=== PATIENT | female | born 1935 | race Caucasian/White ===

== ENCOUNTER 2017-06-13 21:48 | Emergency (ER) | payer MEDICARE ==
[~2017-06-13] VITALS: Ht 170.2 cm; Wt 57.0 kg
[~2017-06-13 21:48] MED LIST: AMIT-106 PO; ASPI-1053 PO; ATOR20TA PO; BUSP5TAB26 PO; CALC1TAB PO; CITA20TA11 PO; CLON0.5T4 PO; FERR324T4 PO; HYDR-3973 PO; LUTE1CAP5 PO; MIRT15TA8 PO; OMEP40CA37 PO; SYSTANE EYE OT; TRAZ-143 PO; VITC500T PO; [UNRECOGNIZED DRUG - CODE] TP; [UNRECOGNIZED DRUG - OTHER] TOP
[2017-06-13] MEDS ORDERED: ALPRAZolam 0.5mg tablet PO ONE (22:10)
[2017-06-13 22:53] VITALS: BP 134/92
== END 2017-06-13 22:54 | disposition home or self-care (01) ==
LOC: ER 21:48
DX: F41.9 Anxiety disorder, unspecified (principal); E78.00 Pure hypercholesterolemia, unspecified; K21.9 Gastro-esophageal reflux disease without esophagitis; F32.9 Major depressive disorder, single episode, unspecified; G89.29 Other chronic pain; I25.2 Old myocardial infarction; I12.9 Hypertensive chronic kidney disease with stage 1 through stage 4 chronic kidney disease, or unspecified chronic kidney disease; N18.9 Chronic kidney disease, unspecified; Z88.0 Allergy status to penicillin
CPT/HCPCS: 93005; 99283; 99284

== ENCOUNTER 2017-06-15 23:05 | Emergency (ER) | payer MEDICARE ==
[~2017-06-15] VITALS: Ht 157.5 cm; Wt 56.6 kg
[2017-06-15 23:31] VITALS: BP 159/93
== END 2017-06-15 23:43 | disposition home or self-care (01) ==
LOC: ER 23:06
DX: R10.9 Unspecified abdominal pain (principal); E78.00 Pure hypercholesterolemia, unspecified; I10 Essential (primary) hypertension; K21.9 Gastro-esophageal reflux disease without esophagitis; Z88.0 Allergy status to penicillin; Z79.82 Long term (current) use of aspirin
CPT/HCPCS: 99283

== ENCOUNTER 2017-10-27 14:25 | Emergency (ER) | payer MEDICARE ==
[~2017-10-27] VITALS: Ht 578.2 cm; Wt 57.0 kg
[~2017-10-27 14:25] MED LIST changes: +CITA-278 PO; -CITA20TA11 PO; +CLON0.5T12 PO; -CLON0.5T4 PO
[2017-10-27 14:36] VITALS: BP 134/79
[2017-10-27 15:30] LABS: BASOPHILS % (AUTO) 0.5 % (0-1); EOSINOPHILS # (AUTO) 0.1 X10'3 (0-0.9); EOSINOPHILS % (AUTO) 1.5 % (0-6); HEMATOCRIT 30.1 % (35.0-45.0); HEMOGLOBIN 10.2 g/dl (12.0-16.0); LYMPHOCYTES # (AUTO) 0.8 X10'3 (1.1-4.8); LYMPHOCYTES % (AUTO) 7.9 % (21-51); MEAN CORPUSCULAR HEMOGLOBIN 31.1 PG (27.0-31.0); MEAN CORPUSCULAR HGB CONC 33.7 % (33.0-36.5); MEAN CORPUSCULAR VOLUME 92.3 FL (78-98); MONOCYTES # (AUTO) 0.5 X10'3 (0-0.9); MONOCYTES % (AUTO) 5.4 % (2-12); NEUTROPHILS # (AUTO) 8.2 X10'3 (1.8-7.7); NEUTROPHILS % (AUTO) 84.7 % (42-75); PLATELET COUNT 349 X10'3 (140-440); RED BLOOD COUNT 3.26 X10'6 (4.20-5.60); RED CELL DISTRIBUTION WIDTH 12.5 % (11.5-14.5); WHITE BLOOD COUNT 9.6 X10'3 (4.5-11.0)
[2017-10-27 15:44] LABS: ALANINE AMINOTRANSFERASE 29 U/L (12-78); ALBUMIN 3.4 G/DL (3.4-5.0); ALBUMIN/GLOBULIN RATIO 1.1 (1.1-1.5); ALKALINE PHOSPHATASE 85 IU/L (46-116); ANION GAP 8 (8-16); ASPARTATE AMINO TRANSFERASE 22 U/L (10-37); BILIRUBIN,TOTAL 0.3 MG/DL (0.1-1.0); BLOOD UREA NITROGEN 11 MG/DL (7-18); BUN/CREATININE RATIO 6.1 (6.6-38.0); CALCIUM 8.7 MG/DL (8.5-10.1); CHLORIDE 99 MMOL/L (99-107); CREATININE 1.79 MG/DL (0.40-0.90); GLUCOSE 121 MG/DL (70-104); POTASSIUM 3.6 MMOL/L (3.5-5.1); SODIUM 129 MMOL/L (135-145); TOTAL CARBON DIOXIDE 21.6 MMOL/L (24-32); TOTAL PROTEIN 6.6 G/DL (6.4-8.2); eGFR 27 ML/MIN
[2017-10-27 15:53] LABS: ETHANOL < 0.010 GM/DL (0.0-0.010)
[2017-10-27 16:12] LABS: CLARITY,URINE SLIGHTLY CLOUDY (Clear); COLOR,URINE STRAW (Yellow); GLUCOSE, URINE NEGATIVE (Neg); KETONES,URINE NEGATIVE (Neg); LEUKOCYTE ESTERASE ,URINE SMALL (Neg); NITRITES, URINE NEGATIVE (Neg); OCCULT BLOOD,URINE NEGATIVE (Neg); PROTEIN,URINE NEGATIVE (Neg); UROBILINOGEN,URINE 0.2 E.U/dL (0.2-1.0)
[2017-10-27 16:13] LABS: UA COLLECTION TYPE CLN CATCH MIDSTREAM
[2017-10-27 16:15] LABS: URINE AMPHETAMINE SCREEN NEGATIVE (Neg); URINE BARBITUATE SCREEN NEGATIVE (Neg); URINE BENZODIAZEPINES SCREEN NEGATIVE (Neg); URINE CANNABINOID SCREEN NEGATIVE (Neg); URINE COCAINE SCREEN NEGATIVE (Neg); URINE METHADONE SCREEN NEGATIVE (Neg); URINE OPIATE SCREEN POSITIVE (Neg); URINE PHENCYCLIDINE SCREEN NEGATIVE (Neg)
[2017-10-27 16:20] LABS: SQUAMOUS EPITHELIAL CELL,UR MANY /LPF (FEW)
[2017-10-27 16:21] LABS: BACTERIA,URINE FEW /HPF (Neg); MUCUS STRANDS NONE SEEN /LPF (Neg); RBC,URINE NONE SEEN /HPF (0-2); TRANSITIONAL EPI CELLS,URINE FEW /HPF; WBC,URINE 20-30 /HPF (0-4)
== END 2017-10-27 18:10 ==
LOC: ER 14:26
DX: F32.9 Major depressive disorder, single episode, unspecified (principal); N18.3 Chronic kidney disease, stage 3 (moderate); E87.1 Hypo-osmolality and hyponatremia; E78.00 Pure hypercholesterolemia, unspecified; I12.9 Hypertensive chronic kidney disease with stage 1 through stage 4 chronic kidney disease, or unspecified chronic kidney disease; K21.9 Gastro-esophageal reflux disease without esophagitis; F41.9 Anxiety disorder, unspecified; Z88.0 Allergy status to penicillin; Z91.013 Allergy to seafood; Z79.82 Long term (current) use of aspirin; Z79.899 Other long term (current) drug therapy
CPT/HCPCS: 36415; 80053; 80305; 80320; 81001; 84443; 85025; 99285

== ENCOUNTER 2017-10-27 18:10 | Inpatient (IN) | payer MEDICARE ==
[~2017-10-27] VITALS: Ht 167.6 cm; Wt 56.0 kg
[2017-10-27 20:00] VITALS: BP 131/76
[2017-10-27] MEDS ORDERED: traZODone 50mg tablet PO PRN (20:25)
[2017-10-27] MEDS ORDERED: SYSTANE EYE OT PRN (20:50)
[2017-10-27] MEDS ORDERED: [UNRECOGNIZED DRUG - OTHER] TOP PRN (20:50)
[2017-10-27] MEDS ORDERED: amitriptyline 25mg tablet PO PRN (20:50)
[2017-10-27] MEDS ORDERED: traZODone 50mg tablet PO SCH ×2 (21:00)
[2017-10-27] MEDS ORDERED: BUSPIRONE HCL 10 MG PO SCH (21:00)
[2017-10-27] MEDS ORDERED: mirtazapine 15mg tablet PO SCH ×2 (21:00)
[2017-10-27] MEDS ORDERED: amitriptyline 10mg tablet PO SCH (21:00)
[2017-10-27] MEDS ORDERED: amitriptyline 25mg tablet PO SCH (21:00)
[2017-10-27] MEDS ORDERED: clonazePAM 0.5mg tablet PO SCH (21:45)
[2017-10-27] MEDS ORDERED: HYDROcodone/acetaminophen 10/325mg tab PO ONE (21:45)
[2017-10-27] MEDS ORDERED: traZODone 50mg tablet PO ONE (22:05)
[2017-10-27] MEDS: aspirin 81mg tab.chew PO SCH (22:15)
[2017-10-27] MEDS: metroNIDAZOLE 500mg tablet PO SCH (22:16)
[2017-10-28] MEDS ORDERED: MENTHOL TP SCH (02:00)
[2017-10-28] MEDS ORDERED: METHYL SALICYLATE TP SCH (02:00)
[2017-10-28] MEDS: metroNIDAZOLE 500mg tablet PO SCH ×3 (05:09→21:19)
[2017-10-28] MEDS: pantoprazole 40mg Tablet.DR PO SCH (07:22)
[2017-10-28 08:00] VITALS: BP 145/78
[2017-10-28] MEDS ORDERED: DESVENLAFAXINE 50 MG PO SCH (08:00)
[2017-10-28] MEDS ORDERED: HYDROcodone/acetaminophen 10/325mg tab PO SCH (08:00)
[2017-10-28] MEDS ORDERED: ZEAXANTHIN PO SCH (08:00)
[2017-10-28] MEDS ORDERED: LUTEIN PO SCH (08:00)
[2017-10-28] MEDS: atorvastatin 20mg tablet PO SCH (08:04)
[2017-10-28] MEDS: busPIRone 5mg tablet PO SCH ×2 (08:04→19:26)
[2017-10-28] MEDS: clonazePAM 0.5mg tablet PO SCH ×2 (08:04→19:26)
[2017-10-28] MEDS: calcium carbonate/vitamin D3 tablet PO SCH (08:04)
[2017-10-28] MEDS: HYDROcodone/acetaminophen 10/325mg tab PO SCH ×3 (08:05→21:20)
[2017-10-28] MEDS: ascorbic acid 500mg tablet PO SCH (08:05)
[2017-10-28 09:46] LABS: BASOPHILS % (AUTO) 0.6 % (0-1); EOSINOPHILS # (AUTO) 0.6 X10'3 (0-0.9); HEMATOCRIT 29.7 % (35.0-45.0); HEMOGLOBIN 9.9 g/dl (12.0-16.0); LYMPHOCYTES % (AUTO) 13.4 % (21-51); MEAN CORPUSCULAR HEMOGLOBIN 30.9 PG (27.0-31.0); MEAN CORPUSCULAR HGB CONC 33.3 % (33.0-36.5); MEAN CORPUSCULAR VOLUME 92.7 FL (78-98); MEAN PLATELET VOLUME 6.4 FL (7.4-10.4); MONOCYTES # (AUTO) 0.6 X10'3 (0-0.9); MONOCYTES % (AUTO) 8.3 % (2-12); NEUTROPHILS # (AUTO) 5.4 X10'3 (1.8-7.7); NEUTROPHILS % (AUTO) 69.7 % (42-75); PLATELET COUNT 304 X10'3 (140-440); RED BLOOD COUNT 3.21 X10'6 (4.20-5.60); RED CELL DISTRIBUTION WIDTH 13.8 % (11.5-14.5); WHITE BLOOD COUNT 7.8 X10'3 (4.5-11.0)
[2017-10-28 10:02] LABS: ALANINE AMINOTRANSFERASE 23 U/L (12-78); ALBUMIN 3.2 G/DL (3.4-5.0); ALBUMIN/GLOBULIN RATIO 1.1 (1.1-1.5); ALKALINE PHOSPHATASE 83 IU/L (46-116); ANION GAP 11 (8-16); ASPARTATE AMINO TRANSFERASE 20 U/L (10-37); BILIRUBIN,TOTAL 0.2 MG/DL (0.1-1.0); BLOOD UREA NITROGEN 12 MG/DL (7-18); BUN/CREATININE RATIO 6.3 (6.6-38.0); CALCIUM 8.6 MG/DL (8.5-10.1); CHLORIDE 105 MMOL/L (99-107); CHOL/HDL RATIO 2.1 (0.00-4.99); CHOLESTEROL 87 MG/DL (0-200); CREATININE 1.91 MG/DL (0.40-0.90); GLUCOSE 114 MG/DL (70-104); HDL CHOLESTEROL 41 MG/DL (35-60); LDL CHOLESTEROL 32 MG/DL (50-100); POTASSIUM 3.2 MMOL/L (3.5-5.1); SODIUM 137 MMOL/L (135-145); TOTAL CARBON DIOXIDE 20.9 MMOL/L (24-32); TOTAL PROTEIN 6.2 G/DL (6.4-8.2); TRIGLYCERIDES 76 MG/DL (20-135); eGFR 25 ML/MIN
[2017-10-28] MEDS: ondansetron 4mg rapidly disintigrating tab PO PRN ×2 (12:47→21:18)
[2017-10-28] MEDS: lactobacillus rhamnosus 10,000 MMU CELLS/CAPSULE PO SCH (19:25)
[2017-10-28 20:00] VITALS: BP 151/85
[2017-10-28] MEDS ORDERED: traZODone 50mg tablet PO SCH (21:00)
[2017-10-28] MEDS: traZODone 50mg tablet PO SCH (21:19)
[2017-10-28] MEDS: mirtazapine 15mg tablet PO SCH (21:19)
[2017-10-28] MEDS: aspirin 81mg tab.chew PO SCH (21:19)
[2017-10-28] MEDS ORDERED: HYDROcodone/acetaminophen 10/325mg tab PO ONE (22:55)
[2017-10-29] MEDS ORDERED: LORazepam 0.5 MG tablet PO PRN (04:25)
[2017-10-29] MEDS: pantoprazole 40mg Tablet.DR PO SCH (07:45)
[2017-10-29 08:00] VITALS: BP 147/81
[2017-10-29] MEDS: lactobacillus rhamnosus 10,000 MMU CELLS/CAPSULE PO SCH ×2 (08:21→21:02)
[2017-10-29] MEDS: venlafaxine XR 75mg capsule (Q24H) PO SCH (08:21)
[2017-10-29] MEDS: busPIRone 5mg tablet PO SCH ×2 (08:21→21:02)
[2017-10-29] MEDS: clonazePAM 0.5mg tablet PO SCH ×2 (08:22→21:03)
[2017-10-29] MEDS: metroNIDAZOLE 500mg tablet PO SCH ×3 (08:22→21:03)
[2017-10-29] MEDS: atorvastatin 20mg tablet PO SCH (08:22)
[2017-10-29] MEDS: calcium carbonate/vitamin D3 tablet PO SCH (08:23)
[2017-10-29] MEDS: HYDROcodone/acetaminophen 10/325mg tab PO SCH ×3 (08:23→21:05)
[2017-10-29] MEDS: ascorbic acid 500mg tablet PO SCH (08:23)
[2017-10-29] MEDS: ondansetron 4mg rapidly disintigrating tab PO PRN (09:35)
[2017-10-29] MEDS: LORazepam 0.5 MG tablet PO PRN ×2 (09:35→19:35)
[2017-10-29 20:57] VITALS: BP 128/80
[2017-10-29] MEDS: traZODone 50mg tablet PO SCH (21:03)
[2017-10-29] MEDS: aspirin 81mg tab.chew PO SCH (21:03)
[2017-10-29] MEDS: mirtazapine 15mg tablet PO SCH (21:04)
[2017-10-29] MEDS: SALONPAS TP SCH (21:07)
[2017-10-30] MEDS: pantoprazole 40mg Tablet.DR PO SCH (07:27)
[2017-10-30 08:00] VITALS: BP 134/79
[2017-10-30] MEDS: clonazePAM 0.5mg tablet PO SCH ×2 (08:20→20:18)
[2017-10-30] MEDS: venlafaxine XR 75mg capsule (Q24H) PO SCH (08:20)
[2017-10-30] MEDS: atorvastatin 20mg tablet PO SCH (08:20)
[2017-10-30] MEDS: busPIRone 5mg tablet PO SCH ×2 (08:20→20:17)
[2017-10-30] MEDS: calcium carbonate/vitamin D3 tablet PO SCH (08:21)
[2017-10-30] MEDS: lactobacillus rhamnosus 10,000 MMU CELLS/CAPSULE PO SCH ×2 (08:21→20:17)
[2017-10-30] MEDS: SALONPAS TP SCH ×3 (08:21→20:54)
[2017-10-30] MEDS: ascorbic acid 500mg tablet PO SCH (08:21)
[2017-10-30] MEDS: HYDROcodone/acetaminophen 10/325mg tab PO SCH ×3 (08:21→20:53)
[2017-10-30] MEDS: LORazepam 0.5 MG tablet PO PRN ×2 (12:40→20:52)
[2017-10-30 19:00] VITALS: BP 91/69
[2017-10-30] MEDS: mirtazapine 15mg tablet PO SCH (20:18)
[2017-10-30] MEDS: aspirin 81mg tab.chew PO SCH (20:18)
[2017-10-30] MEDS: traZODone 50mg tablet PO SCH (20:18)
[2017-10-30 21:00] VITALS: BP 120/70
[2017-10-30] MEDS ORDERED: mag hydrox/Alum hydrox/simeth 30ml oral suspension PO PRN (21:50)
[2017-10-31] MEDS: LORazepam 0.5 MG tablet PO PRN ×2 (02:53→13:38)
[2017-10-31] MEDS: ondansetron 4mg rapidly disintigrating tab PO PRN (02:56)
[2017-10-31] MEDS ORDERED: HYDROcodone/acetaminophen 10/325mg tab PO ONE (04:20)
[2017-10-31] MEDS: pantoprazole 40mg Tablet.DR PO SCH (06:58)
[2017-10-31] MEDS: busPIRone 5mg tablet PO SCH ×2 (08:31→20:30)
[2017-10-31] MEDS: venlafaxine XR 75mg capsule (Q24H) PO SCH (08:31)
[2017-10-31] MEDS: lactobacillus rhamnosus 10,000 MMU CELLS/CAPSULE PO SCH ×2 (08:31→20:30)
[2017-10-31] MEDS: clonazePAM 0.5mg tablet PO SCH (08:32)
[2017-10-31] MEDS: ascorbic acid 500mg tablet PO SCH (08:32)
[2017-10-31] MEDS: atorvastatin 20mg tablet PO SCH (08:32)
[2017-10-31] MEDS: calcium carbonate/vitamin D3 tablet PO SCH (08:32)
[2017-10-31] MEDS: HYDROcodone/acetaminophen 10/325mg tab PO SCH ×3 (08:33→20:32)
[2017-10-31] MEDS: SALONPAS TP SCH ×3 (08:35→20:32)
[2017-10-31 09:41] VITALS: BP 126/78
[2017-10-31] MEDS ORDERED: MIRT30TA8 PO (15:58)
[2017-10-31] MEDS ORDERED: TRAZ-143 PO (15:58)
[2017-10-31] MEDS ORDERED: ATI0.5T PO (15:58)
[2017-10-31] MEDS ORDERED: PANT40TA4 PO (15:58)
[2017-10-31] MEDS ORDERED: VENL75CA61 PO (15:58)
[2017-10-31 19:00] VITALS: BP 125/98
[2017-10-31 19:30] VITALS: BP 120/60
[2017-10-31] MEDS: aspirin 81mg tab.chew PO SCH (20:30)
[2017-10-31] MEDS: traZODone 50mg tablet PO SCH (20:31)
[2017-10-31] MEDS: LORazepam 0.5 MG tablet PO SCH (20:31)
[2017-10-31] MEDS: mirtazapine 15mg tablet PO SCH (20:31)
[2017-10-31] MEDS ORDERED: traZODone 50mg tablet PO ONE (23:35)
[2017-11-01] MEDS: SALONPAS TP SCH ×2 (07:15→12:37)
[2017-11-01] MEDS: pantoprazole 40mg Tablet.DR PO SCH (07:16)
[2017-11-01 08:00] VITALS: BP 147/83
[2017-11-01] MEDS: atorvastatin 20mg tablet PO SCH (08:03)
[2017-11-01] MEDS: venlafaxine XR 75mg capsule (Q24H) PO SCH (08:03)
[2017-11-01] MEDS: lactobacillus rhamnosus 10,000 MMU CELLS/CAPSULE PO SCH (08:03)
[2017-11-01] MEDS: ascorbic acid 500mg tablet PO SCH (08:03)
[2017-11-01] MEDS: calcium carbonate/vitamin D3 tablet PO SCH (08:03)
[2017-11-01] MEDS: LORazepam 0.5 MG tablet PO SCH ×2 (08:03→12:38)
[2017-11-01] MEDS: HYDROcodone/acetaminophen 10/325mg tab PO SCH ×2 (08:05→13:09)
[2017-11-01] MEDS: busPIRone 5mg tablet PO SCH (08:06)
== END 2017-11-01 13:50 | disposition home or self-care (01) | DRG 885 ==
LOC: ADULT MH 18:10
PROVIDERS: ADMIT Psychiatry & Neurology Psychiatry; ATTEND Family Medicine
DX: F32.2 Major depressive disorder, single episode, severe without psychotic features (principal); E87.1 Hypo-osmolality and hyponatremia; N18.4 Chronic kidney disease, stage 4 (severe); E78.5 Hyperlipidemia, unspecified; K21.9 Gastro-esophageal reflux disease without esophagitis; Z96.653 Presence of artificial knee joint, bilateral; I12.9 Hypertensive chronic kidney disease with stage 1 through stage 4 chronic kidney disease, or unspecified chronic kidney disease; D50.9 Iron deficiency anemia, unspecified; E78.00 Pure hypercholesterolemia, unspecified; F41.1 Generalized anxiety disorder; F41.0 Panic disorder [episodic paroxysmal anxiety]; Z88.0 Allergy status to penicillin; Z91.013 Allergy to seafood; Z79.899 Other long term (current) drug therapy; Z82.49 Family history of ischemic heart disease and other diseases of the circulatory system; Z82.0 Family history of epilepsy and other diseases of the nervous system
CPT/HCPCS: 36415; 80053; 80061; 83036; 85025; 87070; J3490

== ENCOUNTER 2017-11-04 14:47 | Emergency (ER) | payer MEDICARE ==
[~2017-11-04] VITALS: Ht 170.2 cm; Wt 54.5 kg
[~2017-11-04 14:47] MED LIST changes: +ATI0.5T PO; -CITA-278 PO; -CLON0.5T12 PO; -FERR324T4 PO; -MIRT15TA8 PO; +MIRT30TA8 PO; -OMEP40CA37 PO; +PANT40TA4 PO; +VENL75CA61 PO
[2017-11-04] MEDS ORDERED: hydrOXYzine 25 MG tablet PO ONE (15:05)
[2017-11-04 15:30] LABS: BASOPHILS # (AUTO) 0.1 X10'3 (0-0.2); BASOPHILS % (AUTO) 1.1 % (0-1); EOSINOPHILS # (AUTO) 0.3 X10'3 (0-0.9); EOSINOPHILS % (AUTO) 4.2 % (0-6); HEMOGLOBIN 9.1 g/dl (12.0-16.0); LYMPHOCYTES # (AUTO) 0.7 X10'3 (1.1-4.8); LYMPHOCYTES % (AUTO) 10.8 % (21-51); MEAN CORPUSCULAR HEMOGLOBIN 30.8 PG (27.0-31.0); MEAN CORPUSCULAR HGB CONC 33.7 % (33.0-36.5); MEAN CORPUSCULAR VOLUME 91.3 FL (78-98); MONOCYTES # (AUTO) 0.5 X10'3 (0-0.9); MONOCYTES % (AUTO) 8.1 % (2-12); NEUTROPHILS # (AUTO) 4.8 X10'3 (1.8-7.7); NEUTROPHILS % (AUTO) 75.8 % (42-75); PLATELET COUNT 316 X10'3 (140-440); RED BLOOD COUNT 2.95 X10'6 (4.20-5.60); RED CELL DISTRIBUTION WIDTH 13.5 % (11.5-14.5); WHITE BLOOD COUNT 6.4 X10'3 (4.5-11.0)
[2017-11-04 15:45] LABS: ALANINE AMINOTRANSFERASE 21 U/L (12-78); ALBUMIN 3.3 G/DL (3.4-5.0); ALBUMIN/GLOBULIN RATIO 1.1 (1.1-1.5); ALKALINE PHOSPHATASE 74 IU/L (46-116); ANION GAP 12 (8-16); ASPARTATE AMINO TRANSFERASE 18 U/L (10-37); BILIRUBIN,TOTAL 0.3 MG/DL (0.1-1.0); BLOOD UREA NITROGEN 15 MG/DL (7-18); BUN/CREATININE RATIO 8.5 (6.6-38.0); CALCIUM 9.1 MG/DL (8.5-10.1); CHLORIDE 96 MMOL/L (99-107); CREATININE 1.77 MG/DL (0.40-0.90); GLUCOSE 99 MG/DL (70-104); POTASSIUM 3.8 MMOL/L (3.5-5.1); SODIUM 128 MMOL/L (135-145); TOTAL CARBON DIOXIDE 19.8 MMOL/L (24-32); TOTAL PROTEIN 6.2 G/DL (6.4-8.2); eGFR 28 ML/MIN
[2017-11-04 15:53] LABS: CLARITY,URINE CLEAR (Clear); COLOR,URINE STRAW (Yellow); GLUCOSE, URINE NEGATIVE (Neg); KETONES,URINE NEGATIVE (Neg); LEUKOCYTE ESTERASE ,URINE NEGATIVE (Neg); NITRITES, URINE NEGATIVE (Neg); OCCULT BLOOD,URINE NEGATIVE (Neg); PH,URINE 6.5 (4.8-8.0); PROTEIN,URINE NEGATIVE (Neg); UA COLLECTION TYPE VOIDED; UROBILINOGEN,URINE 0.2 E.U/dL (0.2-1.0)
[2017-11-04 16:18] VITALS: BP 154/85
== END 2017-11-04 16:20 | disposition home or self-care (01) ==
LOC: ER 14:47
DX: F41.9 Anxiety disorder, unspecified (principal); N18.1 Chronic kidney disease, stage 1; E78.00 Pure hypercholesterolemia, unspecified; K21.9 Gastro-esophageal reflux disease without esophagitis; F32.9 Major depressive disorder, single episode, unspecified; I12.9 Hypertensive chronic kidney disease with stage 1 through stage 4 chronic kidney disease, or unspecified chronic kidney disease; Z98.890 Other specified postprocedural states; Z88.0 Allergy status to penicillin; Z91.013 Allergy to seafood; Z79.82 Long term (current) use of aspirin; Z79.899 Other long term (current) drug therapy
CPT/HCPCS: 36415; 80053; 81003; 85025; 99284; Q0177

== ENCOUNTER 2017-12-26 13:48 | Emergency (ER) | payer MEDICARE ==
[~2017-12-26] VITALS: Ht 167.6 cm; Wt 53.0 kg
[~2017-12-26 13:48] MED LIST changes: -TRAZ-143 PO; +TRAZ-218 PO
[2017-12-26] MEDS ORDERED: MULTIVITAMIN (14:53)
[2017-12-26] MEDS ORDERED: MAGN500T9 PO (14:53)
[2017-12-26] MEDS ORDERED: CELE-193 PO (14:53)
[2017-12-26] MEDS ORDERED: METO100T14 PO (14:53)
[2017-12-26] MEDS ORDERED: TEMA15CA5 PO (14:53)
[2017-12-26] MEDS ORDERED: CITA-278 PO (14:53)
[2017-12-26] MEDS ORDERED: PRAV40TA3 PO (14:53)
[2017-12-26] MEDS ORDERED: DIGO125T PO (14:53)
[2017-12-26] MEDS ORDERED: ONDA8TAB9 PO (14:53)
[2017-12-26 15:02] LABS: BASOPHILS % (AUTO) 0.5 % (0-1); EOSINOPHILS # (AUTO) 0.7 X10'3 (0-0.9); EOSINOPHILS % (AUTO) 8.9 % (0-6); HEMATOCRIT 27.6 % (35.0-45.0); HEMOGLOBIN 9.4 g/dl (12.0-16.0); LYMPHOCYTES # (AUTO) 0.9 X10'3 (1.1-4.8); LYMPHOCYTES % (AUTO) 11.3 % (21-51); MEAN CORPUSCULAR HEMOGLOBIN 31.1 PG (27.0-31.0); MEAN CORPUSCULAR HGB CONC 34.2 % (33.0-36.5); MEAN PLATELET VOLUME 7.5 FL (7.4-10.4); MONOCYTES # (AUTO) 0.7 X10'3 (0-0.9); NEUTROPHILS # (AUTO) 5.3 X10'3 (1.8-7.7); NEUTROPHILS % (AUTO) 70.3 % (42-75); PLATELET COUNT 240 X10'3 (140-440); RED BLOOD COUNT 3.03 X10'6 (4.20-5.60); RED CELL DISTRIBUTION WIDTH 13.3 % (11.5-14.5); WHITE BLOOD COUNT 7.6 X10'3 (4.5-11.0)
[2017-12-26] MEDS ORDERED: HYDROcodone/acetaminophen 5mg/325mg tablet PO ONE (15:10)
[2017-12-26 15:20] LABS: ALANINE AMINOTRANSFERASE 18 U/L (12-78); ALBUMIN 3.3 G/DL (3.4-5.0); ALBUMIN/GLOBULIN RATIO 1.1 (1.1-1.5); ALKALINE PHOSPHATASE 106 IU/L (46-116); ANION GAP 9 (8-16); ASPARTATE AMINO TRANSFERASE 10 U/L (10-37); BILIRUBIN,TOTAL 0.2 MG/DL (0.1-1.0); BLOOD UREA NITROGEN 35 MG/DL (7-18); BUN/CREATININE RATIO 16.2 (6.6-38.0); CALCIUM 8.9 MG/DL (8.5-10.1); CHLORIDE 101 MMOL/L (99-107); CREATININE 2.16 MG/DL (0.40-0.90); GLUCOSE 127 MG/DL (70-104); POTASSIUM 5.4 MMOL/L (3.5-5.1); SODIUM 135 MMOL/L (135-145); TOTAL CARBON DIOXIDE 25.1 MMOL/L (24-32); TOTAL PROTEIN 6.2 G/DL (6.4-8.2); eGFR 22 ML/MIN
[2017-12-26 15:30] LABS: ETHANOL < 0.010 GM/DL (0.0-0.010)
[2017-12-26] MEDS ORDERED: amitriptyline 25mg tablet PO PRN (15:30)
[2017-12-26] MEDS ORDERED: LORazepam 0.5 MG tablet PO PRN (15:30)
[2017-12-26] MEDS ORDERED: PROP10DR15 EACHEYE (15:32)
[2017-12-26] MEDS ORDERED: ondansetron 4mg rapidly disintigrating tab PO PRN (15:50)
[2017-12-26] MEDS ORDERED: polyvinyl alcohol ophthalmic drops 15ml bottle EACHEYE PRN (15:55)
[2017-12-26 16:42] LABS: CLARITY,URINE SLIGHTLY CLOUDY (Clear); COLOR,URINE YELLOW (Yellow); GLUCOSE, URINE NEGATIVE (Neg); KETONES,URINE NEGATIVE (Neg); LEUKOCYTE ESTERASE ,URINE MODERATE (Neg); NITRITES, URINE POSITIVE (Neg); OCCULT BLOOD,URINE MODERATE (Neg); PH,URINE 6.5 (4.8-8.0); PROTEIN,URINE NEGATIVE (Neg); UROBILINOGEN,URINE 0.2 E.U/dL (0.2-1.0)
[2017-12-26 16:50] LABS: UA COLLECTION TYPE CLN CATCH MIDSTREAM
[2017-12-26 16:51] LABS: BACTERIA,URINE 3+ /HPF (Neg); MUCUS STRANDS NONE SEEN /LPF (Neg); RENAL CELLS, URINE FEW /HPF; SQUAMOUS EPITHELIAL CELL,UR MODERATE /LPF (FEW); URINE AMPHETAMINE SCREEN NEGATIVE (Neg); URINE BARBITUATE SCREEN NEGATIVE (Neg); URINE BENZODIAZEPINES SCREEN NEGATIVE (Neg); URINE CANNABINOID SCREEN POSITIVE (Neg); URINE COCAINE SCREEN NEGATIVE (Neg); URINE METHADONE SCREEN NEGATIVE (Neg); URINE OPIATE SCREEN POSITIVE (Neg); URINE PHENCYCLIDINE SCREEN NEGATIVE (Neg)
[2017-12-26 16:52] LABS: WBC,URINE 30-50 /HPF (0-4)
[2017-12-26] MEDS ORDERED: metoprolol tartrate 50mg tablet PO SCH (20:00)
[2017-12-26] MEDS ORDERED: celeCOXIB 100mg capsule PO SCH (20:00)
[2017-12-26] MEDS ORDERED: busPIRone 5mg tablet PO SCH (21:00)
[2017-12-26] MEDS ORDERED: temazepam 15mg capsule PO PRN (21:00)
[2017-12-26] MEDS ORDERED: mirtazapine 15mg tablet PO SCH (21:00)
[2017-12-26] MEDS ORDERED: aspirin 81mg tab.chew PO SCH (21:00)
[2017-12-26] MEDS ORDERED: HYDROcodone/acetaminophen 10/325mg tab PO PRN (21:00)
[2017-12-26] MEDS ORDERED: traZODone 50mg tablet PO SCH (21:00)
[2017-12-26 22:39] VITALS: BP 165/88
[2017-12-27] MEDS ORDERED: pantoprazole 40mg Tablet.DR PO SCH (07:30)
[2017-12-27] MEDS ORDERED: CITALOpram 10mg tablet PO SCH (08:00)
[2017-12-27] MEDS ORDERED: calcium carbonate/vitamin D3 tablet PO SCH (08:00)
[2017-12-27] MEDS ORDERED: digoxin 125mcg (0.125mg) tablet PO SCH (08:00)
[2017-12-27] MEDS ORDERED: MAGNESIUM GLUCONATE PO SCH (08:00)
[2017-12-27] MEDS ORDERED: pravastatin 40mg tablet PO SCH (08:00)
[2017-12-27] MEDS ORDERED: venlafaxine XR 75mg capsule (Q24H) PO SCH (08:00)
[2017-12-27] MEDS ORDERED: beta-carotene(A) w/C & E + minerals tab PO SCH (08:00)
[2017-12-27] MEDS ORDERED: ascorbic acid 500mg tablet PO SCH (08:00)
== END 2017-12-26 22:46 | disposition home or self-care (01) ==
LOC: ER 13:49
DX: F32.9 Major depressive disorder, single episode, unspecified (principal); E78.00 Pure hypercholesterolemia, unspecified; I10 Essential (primary) hypertension; K21.9 Gastro-esophageal reflux disease without esophagitis; G89.29 Other chronic pain; F41.9 Anxiety disorder, unspecified; Z98.890 Other specified postprocedural states; Z88.0 Allergy status to penicillin; Z91.013 Allergy to seafood; Z79.82 Long term (current) use of aspirin; Z79.899 Other long term (current) drug therapy
CPT/HCPCS: 36415; 51701; 80053; 80162; 80305; 80320; 81001; 84443; 85025; 99284; A4353

== ENCOUNTER 2021-12-03 13:30 | Inpatient (IN) | payer MEDICARE ==
[~2021-12-03] VITALS: Ht 168.9 cm; Wt 54.8 kg
[~2021-12-03 13:30] MED LIST changes: -AMIT-106 PO; -ASPI-1053 PO; -ATI0.5T PO; -ATOR20TA PO; +BUSP10TA11 PO; -BUSP5TAB26 PO; +CARB1TAB36 PO; +DIGO125T PO; +FERR324T12 PO; -HYDR-3973 PO; +LORA-269 PO; -LUTE1CAP5 PO; +MIRT-88 PO; -MIRT30TA8 PO; +MULT-215 PO; +ONDA4TAB6 PO; +OXYC10TA47 PO; +PANT-47 PO; -PANT40TA4 PO; +ROPI1TAB2 PO; -SYSTANE EYE OT; -TRAZ-218 PO; +VENL25TA48 PO; -VENL75CA61 PO; -VITC500T PO; +WARF4TAB69 PO; +WARF6TAB49 PO; +ZOLP5TAB8 PO; -[UNRECOGNIZED DRUG - CODE] TP; -[UNRECOGNIZED DRUG - OTHER] TOP
[2021-12-03 14:29] LABS: BASOPHILS # (AUTO) 0.1 X10'3 (0-0.2); BASOPHILS % (AUTO) 1.4 % (0-1); EOSINOPHILS # (AUTO) 0.5 X10'3 (0-0.9); EOSINOPHILS % (AUTO) 6.5 % (0-6); HEMATOCRIT 35.4 % (35.0-45.0); HEMOGLOBIN 11.8 g/dl (12.0-16.0); LYMPHOCYTES # (AUTO) 1.5 X10'3 (1.1-4.8); MEAN CORPUSCULAR HEMOGLOBIN 31.4 PG (27.0-31.0); MEAN CORPUSCULAR HGB CONC 33.2 g/dL (33.0-36.5); MEAN CORPUSCULAR VOLUME 94.8 FL (78-98); MEAN PLATELET VOLUME 6.7 FL (7.4-10.4); MONOCYTES # (AUTO) 0.7 X10'3 (0-0.9); MONOCYTES % (AUTO) 9.9 % (2-12); NEUTROPHILS # (AUTO) 4.4 X10'3 (1.8-7.7); NEUTROPHILS % (AUTO) 61.2 % (42-75); PLATELET COUNT 195 X10'3 (140-440); RED BLOOD COUNT 3.74 X10'6 (4.20-5.60); RED CELL DISTRIBUTION WIDTH 15.6 % (11.5-14.5); WHITE BLOOD COUNT 7.2 X10'3 (4.5-11.0)
[2021-12-03 14:56] LABS: CLARITY,URINE SLIGHTLY CLOUDY (Clear); COLOR,URINE YELLOW (Yellow); GLUCOSE, URINE NEGATIVE (Neg); KETONES,URINE NEGATIVE (Neg); LEUKOCYTE ESTERASE ,URINE SMALL (Neg); NITRITES, URINE POSITIVE (Neg); OCCULT BLOOD,URINE TRACE-INTACT (Neg); PROTEIN,URINE NEGATIVE (Neg); UROBILINOGEN,URINE 0.2 E.U/dL (0.2-1.0)
[2021-12-03 15:01] LABS: UA COLLECTION TYPE NON-SPECIFIED
[2021-12-03 15:02] LABS: BACTERIA,URINE 2+ /HPF (Neg)
[2021-12-03 15:04] LABS: MUCUS STRANDS FEW /LPF (Neg); RBC,URINE 0-2 /HPF (0-2); SQUAMOUS EPITHELIAL CELL,UR FEW /LPF (FEW); WBC,URINE 0-4 /HPF (0-4)
[2021-12-03 15:28] LABS: ALANINE AMINOTRANSFERASE 11 U/L (12-78); ALBUMIN 3.3 G/DL (3.4-5.0); ALBUMIN/GLOBULIN RATIO 0.9 (1.1-1.5); ALKALINE PHOSPHATASE 92 IU/L (46-116); ANION GAP 11 (8-16); ASPARTATE AMINO TRANSFERASE 21 U/L (10-37); BILIRUBIN,TOTAL 0.3 MG/DL (0.1-1.0); BLOOD UREA NITROGEN 54 MG/DL (7-18); BUN/CREATININE RATIO 31.4 (6.6-38.0); CALCIUM 8.6 MG/DL (8.5-10.1); CHLORIDE 110 MMOL/L (99-107); CREATININE 1.72 MG/DL (0.40-0.90); GLUCOSE 97 MG/DL (70-104); SODIUM 136 MMOL/L (135-145); TOTAL PROTEIN 6.8 G/DL (6.4-8.2); eGFR 28 ML/MIN
[2021-12-03 15:29] LABS: TOTAL CARBON DIOXIDE 14.6 MMOL/L (24-32)
--- NOTE | 2021-12-03 15:29 | NUR ---
CO2 14.6 reported to ER
[2021-12-03] MEDS ORDERED: normal saline 1000ML IV soln IVB ONE (16:10)
[2021-12-03] MEDS ORDERED: NORMAL SALINE IV ONE (18:15)
[2021-12-03] MEDS ORDERED: DIGOXIN IMMUNE FAB IV ONE (18:15)
[2021-12-03] MEDS ORDERED: POTASSIUM BICARB 20meq eff tab 20 MEQ TABLET.EFF PO PRN ×2 (18:20)
[2021-12-03] MEDS ORDERED: magnesium 2GM in 50ml NS 50 ML IV PRN (18:20)
[2021-12-03] MEDS ORDERED: potassium CL 10mEq/100ml bag 100 ML IV PRN (18:20)
[2021-12-03] MEDS ORDERED: magnesium Cl slow-release 64mg tablet PO PRN (18:20)
[2021-12-03] MEDS ORDERED: magnesium 4gm in 100ml NS 100 ML IV PRN (18:20)
[2021-12-03 18:29] LABS: MAGNESIUM 2.2 MG/DL (1.5-2.4)
[2021-12-03] MEDS ORDERED: BREX2TAB PO (19:30)
[2021-12-03] MEDS ORDERED: GABA-530 PO (19:30)
[2021-12-03] MEDS ORDERED: METO25TA6 PO (19:30)
[2021-12-03] MEDS ORDERED: ATOR40TA72 PO (19:30)
[2021-12-03] MEDS ORDERED: VENL75TA90 PO (19:30)
[2021-12-03] MEDS ORDERED: CARB1TAB39 PO (19:30)
[2021-12-03] MEDS ORDERED: DILT240C47 PO (19:30)
[2021-12-03] MEDS ORDERED: OXYC-658 PO (19:31)
[2021-12-03] MEDS: K and/or MAG REPLACEMENT MC SCH (19:57)
[2021-12-03 22:30] VITALS: BP 173/87
[2021-12-04] VITALS (9 sets, daily range): BP systolic 100–165; BP diastolic 50–89
--- NOTE | 2021-12-04 | NUR ---
Dr Khanna made aware that patient had no diet order, was not receiving any IV fluids and BP was 161/[address] Khanna ordered Heart Healthy diet, no fluid order or BP medication ordered at this time.
--- NOTE | 2021-12-04 05:00 | NUR ---
Was told by LOLA Velazquez that patient pulled out her catheter at aprox 0000. Pt stated "I took it out" asked her if she was having any pain she denied it. There was no visible trauma but was some blood when cleaned her up. It was scant pink on bath wipes. Bladder scanned pt around 0400. Pt had 178 in bladder and denied pain or the need to urinate at this time. No visible signs of trauma or bleeding. Pt resting comfortably.
[2021-12-04] MEDS ORDERED: PERFLUTREN PROTEIN-A MICROSPHR (Optison) 0.22 MG/ML 3ML VIAL IV ONE (06:20)
[2021-12-04] MEDS ORDERED: oxyCODONE IR 5mg (immed. release) tablet PO PRN (06:20)
[2021-12-04] MEDS ORDERED: zolpidem 5mg tablet PO PRN (06:20)
[2021-12-04] MEDS ORDERED: magnesium 4gm in 100ml NS 100 ML IV PRN (06:25)
[2021-12-04] MEDS ORDERED: POTASSIUM BICARB 20meq eff tab 20 MEQ TABLET.EFF PO PRN ×2 (06:25)
[2021-12-04] MEDS ORDERED: potassium CL 10mEq/100ml bag 100 ML IV PRN (06:25)
[2021-12-04] MEDS ORDERED: magnesium Cl slow-release 64mg tablet PO PRN (06:25)
[2021-12-04] MEDS ORDERED: magnesium 2GM in 50ml NS 50 ML IV PRN (06:25)
--- NOTE | 2021-12-04 06:55 | NUR ---
Problems reprioritized. Patient report given, questions answered & plan of care reviewed with TREY Berumen.
[2021-12-04 07:28] LABS: BASOPHILS # (AUTO) 0.1 X10'3 (0-0.2); BASOPHILS % (AUTO) 1.3 % (0-1); EOSINOPHILS # (AUTO) 0.4 X10'3 (0-0.9); EOSINOPHILS % (AUTO) 5.6 % (0-6); HEMATOCRIT 36.4 % (35.0-45.0); HEMOGLOBIN 12.1 g/dl (12.0-16.0); LYMPHOCYTES # (AUTO) 1.1 X10'3 (1.1-4.8); LYMPHOCYTES % (AUTO) 13.6 % (21-51); MEAN CORPUSCULAR HEMOGLOBIN 30.9 PG (27.0-31.0); MEAN CORPUSCULAR HGB CONC 33.3 g/dL (33.0-36.5); MEAN CORPUSCULAR VOLUME 92.8 FL (78-98); MEAN PLATELET VOLUME 6.7 FL (7.4-10.4); MONOCYTES # (AUTO) 0.7 X10'3 (0-0.9); MONOCYTES % (AUTO) 8.5 % (2-12); NEUTROPHILS # (AUTO) 5.7 X10'3 (1.8-7.7); PLATELET COUNT 219 X10'3 (140-440); RED BLOOD COUNT 3.93 X10'6 (4.20-5.60); RED CELL DISTRIBUTION WIDTH 15.2 % (11.5-14.5)
[2021-12-04 07:49] LABS: ALBUMIN 3.4 G/DL (3.4-5.0); ANION GAP 12 (8-16); BLOOD UREA NITROGEN 36 MG/DL (7-18); BUN/CREATININE RATIO 25.5 (6.6-38.0); CALCIUM 8.4 MG/DL (8.5-10.1); CHLORIDE 115 MMOL/L (99-107); CREATININE 1.41 MG/DL (0.40-0.90); GLUCOSE 88 MG/DL (70-104); MAGNESIUM 2.1 MG/DL (1.5-2.4); POTASSIUM 4.5 MMOL/L (3.5-5.1); SODIUM 144 MMOL/L (135-145); TOTAL CARBON DIOXIDE 17.1 MMOL/L (24-32); eGFR 35 ML/MIN
[2021-12-04] MEDS ORDERED: venlafaxine XR 75mg capsule (Q24H) PO SCH (08:00)
[2021-12-04] MEDS ORDERED: digoxin 125mcg (0.125mg) tablet PO SCH (08:00)
[2021-12-04] MEDS: K and/or MAG REPLACEMENT MC SCH ×4 (08:00→19:21)
--- NOTE | 2021-12-04 08:22 | NUR ---
Spoke to Dr. Wolfe over the phone. He waas asking me about the digibind. I told him that upon review of eMAR it did not seemed to me that the Digibind was given to the patient as there was no time stamped under the column that says last admin date and time. I also spoke to pharmacist this am about this and the pharmacist told me that it's not showing that on his end that it was given. Dr. Wolfe agreed to recheck the serum Digoxin level at this time. Addendum: 12/04/21 at 0826 by Jamaica Damico RN Called lab that we have a STAT order for digoxin level
[2021-12-04] MEDS: multivitamins, therapeutics tablet PO SCH (08:50)
[2021-12-04] MEDS: busPIRone 5mg tablet PO SCH ×2 (08:51→16:48)
[2021-12-04] MEDS: gabapentin 100mg capsule PO SCH ×2 (08:51→14:03)
[2021-12-04] MEDS: calcium carbonate/vitamin D3 tablet PO SCH (08:51)
[2021-12-04] MEDS: ferrous sulfate 325mg tablet PO SCH ×2 (08:52→19:21)
[2021-12-04] MEDS: pantoprazole 40mg Tablet.DR PO SCH ×2 (08:52→19:20)
[2021-12-04] MEDS: atorvastatin 20mg tablet PO SCH (08:55)
[2021-12-04] MEDS: LORazepam 1 MG tablet PO SCH ×3 (09:03→16:49)
[2021-12-04] MEDS: venlafaxine XR 75mg capsule (Q24H) PO SCH (09:03)
[2021-12-04] MEDS: levoFLOXACIN-Levaquin 250mg/D5 50 ML IV SCH (09:13)
[2021-12-04] MEDS: normal saline 1000ml 1,000 ML IV SCH ×3 (09:15→19:28)
--- NOTE | 2021-12-04 13:34 | NUR ---
PRESSURE ULCER EDUCATION: DEFINITION: A pressure ulcer is an area of skin that breaks down when you stay in one position too long. The constant pressure against the skin reduces the blood flow to that area and the affected tissue dies. CAUSES: "Being bedridden or in a wheelchair "Fragile skin "Having a chronic condition, such as diabetes or vascular disease "Inability to move certain parts of your body without assistance "Older age "Incontinence of urine or stool SYMPTOMS: "A reddened area that DOES NOT turn white when pressed on - this can be the beginning of a pressure ulcer "A blister, deep sore or a crater - these can be advanced pressure ulcers FIRST AID: "Relieve the pressure on this area "Keep the area clean and dry "Call your primary doctor if you see any of the above symptoms "DO NOT massage the area "DO NOT use a donut shaped or ring shaped pillow- these actually interfere with the blood flow and cause complications PREVENTION: "Check for pressure ulcers everyday "Change position at least every two hours to relieve pressure "Use items that help relieve pressure- pillows, sheepskin, foam padding, and powders. "Keep skin clean and dry "Eat healthy well balanced meals "Exercise daily IF YOU SEE ANY OF THESE SYMPTOMS WHILE IN THE HOSPITAL - TELL YOUR NURSE IMMEDIATELY. IF YOU SEE ANY OF THESE SYMPTOMS WHILE AT HOME OR HAVE ANY QUESTIONS OR CONCERNS ABOUT PRESSURE ULCERS - CALL YOUR PRIMARY DOCTOR IMMEDIATELY. Addendum: 12/04/21 at 1334 by Shantell Huber RN Amended: Links added.
--- NOTE | 2021-12-04 13:46 | NUR ---
Malnutrition Consult: Pt admit DX digoxin toxicity, hypotension, UTI, TAINA, metabolic acidosis, Parkinsonism, and generalized weakness reports 2-13 pounds wt loss past 3 months w/ decreased appetite STAMPING OPERATOR per EMR. Pt seen by ESTEBAN at bedside; pt reports low appetite at baseline decreasing STAMPING OPERATOR though did consume just shy of 50% heart healthy breakfast this AM. Pt has visible moderate to severe muscle/fat wasting evident to bilateral biceps/triceps and temples and reports clothes fitting looser than usual w/ wt loss. Per pt, UBW ~125 pounds; pending scaled wt this admit. Given visible muscle/fat wasting w/ predicted suboptimal intake pt meets severe malnutrition criteria at this time; MD notified. Per MD digoxin toxicity likely influenced decrease appetite; levels now WNL per EMR. MD agreeable to liberalize to regular diet given malnutrition status. Pt reports no trouble chewing/swallowing though is amenable to chopped food for ease of PO; dietary notified. Will monitor for further PO trends and nutrition intervention needs this admit. Rec: 1. continue regular diet; encourage PO; chop all per pt request 2. monitor for PO documentation and ONS needs now digoxin levels WNL 3. MVI supplementation 4. bowel care per rx 5. scaled wt this admit; subsequent weekly wts Addendum: 12/04/21 at [address] Amended: Links added.
[2021-12-04] MEDS: metoprolol tartrate 25mg tablet PO SCH (19:21)
[2021-12-04] MEDS ORDERED: LORazepam 0.5 MG tablet PO ONE (21:30)
[2021-12-04] MEDS: ROPINIRole 1mg tablet PO SCH (21:32)
[2021-12-04] MEDS: mirtazapine 15mg tablet PO SCH (21:33)
[2021-12-05] VITALS (8 sets, daily range): BP systolic 144–185; BP diastolic 84–100
[2021-12-05] MEDS: busPIRone 5mg tablet PO SCH ×3 (00:21→23:14)
[2021-12-05] MEDS: normal saline 1000ml 1,000 ML IV SCH ×2 (05:05→22:10)
--- NOTE | 2021-12-05 06:30 | NUR ---
Problems reprioritized. Patient report given, questions answered & plan of care reviewed with TREY MAYO.
[2021-12-05 07:05] LABS: BASOPHILS # (AUTO) 0.1 X10'3 (0-0.2); EOSINOPHILS # (AUTO) 0.5 X10'3 (0-0.9); LYMPHOCYTES # (AUTO) 1.3 X10'3 (1.1-4.8); MONOCYTES # (AUTO) 0.6 X10'3 (0-0.9); NEUTROPHILS % (AUTO) 57.9 % (42-75); RED CELL DISTRIBUTION WIDTH 15.3 % (11.5-14.5)
[2021-12-05 07:11] LABS: BASOPHILS % (AUTO) 1.9 % (0-1); EOSINOPHILS % (AUTO) 8.3 % (0-6); HEMATOCRIT 36.5 % (35.0-45.0); LYMPHOCYTES % (AUTO) 21.5 % (21-51); MEAN CORPUSCULAR HEMOGLOBIN 31.1 PG (27.0-31.0); MEAN CORPUSCULAR HGB CONC 32.9 g/dL (33.0-36.5); MEAN CORPUSCULAR VOLUME 94.6 FL (78-98); MEAN PLATELET VOLUME 6.5 FL (7.4-10.4); MONOCYTES % (AUTO) 10.4 % (2-12); NEUTROPHILS # (AUTO) 3.4 X10'3 (1.8-7.7); PLATELET COUNT 186 X10'3 (140-440); RED BLOOD COUNT 3.86 X10'6 (4.20-5.60); WHITE BLOOD COUNT 5.9 X10'3 (4.5-11.0)
[2021-12-05 07:21] LABS: ALBUMIN 3.3 G/DL (3.4-5.0); ANION GAP 12 (8-16); BLOOD UREA NITROGEN 28 MG/DL (7-18); BUN/CREATININE RATIO 21.7 (6.6-38.0); CALCIUM 8.6 MG/DL (8.5-10.1); CHLORIDE 114 MMOL/L (99-107); CREATININE 1.29 MG/DL (0.40-0.90); GLUCOSE 87 MG/DL (70-104); MAGNESIUM 2.1 MG/DL (1.5-2.4); POTASSIUM 4.6 MMOL/L (3.5-5.1); SODIUM 144 MMOL/L (135-145); TOTAL CARBON DIOXIDE 18.2 MMOL/L (24-32); eGFR 39 ML/MIN
[2021-12-05] MEDS ORDERED: venlafaxine XR 75mg capsule (Q24H) PO SCH (08:00)
[2021-12-05] MEDS: calcium carbonate/vitamin D3 tablet PO SCH (08:17)
[2021-12-05] MEDS: LORazepam 0.5 MG tablet PO SCH ×3 (08:17→23:10)
[2021-12-05] MEDS: ferrous sulfate 325mg tablet PO SCH ×2 (08:17→23:13)
[2021-12-05] MEDS: venlafaxine XR 75mg capsule (Q24H) PO SCH (08:18)
[2021-12-05] MEDS: pantoprazole 40mg Tablet.DR PO SCH ×2 (08:18→23:11)
[2021-12-05] MEDS: gabapentin 100mg capsule PO SCH (08:18)
[2021-12-05] MEDS: metoprolol tartrate 25mg tablet PO SCH ×2 (08:20→23:12)
[2021-12-05] MEDS: levoFLOXACIN-Levaquin 250mg/D5 50 ML IV SCH (08:20)
[2021-12-05] MEDS: multivitamins, therapeutics tablet PO SCH (08:20)
[2021-12-05] MEDS: atorvastatin 20mg tablet PO SCH (08:20)
[2021-12-05] MEDS: K and/or MAG REPLACEMENT MC SCH ×2 (20:00)
[2021-12-05] MEDS: ROPINIRole 1mg tablet PO SCH (23:10)
[2021-12-05] MEDS: mirtazapine 15mg tablet PO SCH (23:10)
[2021-12-06 02:00] VITALS: BP 184/99
[2021-12-06] MEDS ORDERED: metoprolol tartrate 25mg tablet PO SCH (02:55)
[2021-12-06 06:00] VITALS: BP 173/80
[2021-12-06 06:45] LABS: BASOPHILS # (AUTO) 0.1 X10'3 (0-0.2); BASOPHILS % (AUTO) 1.5 % (0-1); EOSINOPHILS # (AUTO) 0.6 X10'3 (0-0.9); HEMATOCRIT 33.7 % (35.0-45.0); HEMOGLOBIN 11.4 g/dl (12.0-16.0); LYMPHOCYTES % (AUTO) 14.1 % (21-51); MEAN CORPUSCULAR HEMOGLOBIN 31.1 PG (27.0-31.0); MEAN CORPUSCULAR HGB CONC 33.9 g/dL (33.0-36.5); MEAN CORPUSCULAR VOLUME 91.8 FL (78-98); MEAN PLATELET VOLUME 6.7 FL (7.4-10.4); MONOCYTES # (AUTO) 0.7 X10'3 (0-0.9); MONOCYTES % (AUTO) 10.2 % (2-12); NEUTROPHILS # (AUTO) 4.7 X10'3 (1.8-7.7); NEUTROPHILS % (AUTO) 66.2 % (42-75); PLATELET COUNT 188 X10'3 (140-440); RED BLOOD COUNT 3.67 X10'6 (4.20-5.60); RED CELL DISTRIBUTION WIDTH 14.8 % (11.5-14.5); WHITE BLOOD COUNT 7.1 X10'3 (4.5-11.0)
[2021-12-06 06:52] LABS: ALBUMIN 3.2 G/DL (3.4-5.0); ANION GAP 10 (8-16); BLOOD UREA NITROGEN 23 MG/DL (7-18); BUN/CREATININE RATIO 18.4 (6.6-38.0); CALCIUM 8.6 MG/DL (8.5-10.1); CHLORIDE 113 MMOL/L (99-107); CREATININE 1.25 MG/DL (0.40-0.90); GLUCOSE 81 MG/DL (70-104); MAGNESIUM 1.9 MG/DL (1.5-2.4); POTASSIUM 4.2 MMOL/L (3.5-5.1); SODIUM 143 MMOL/L (135-145); eGFR 41 ML/MIN
[2021-12-06] MEDS: ferrous sulfate 325mg tablet PO SCH (07:52)
[2021-12-06] MEDS: levoFLOXACIN-Levaquin 250mg/D5 50 ML IV SCH (07:52)
[2021-12-06] MEDS: calcium carbonate/vitamin D3 tablet PO SCH (07:53)
[2021-12-06] MEDS: gabapentin 100mg capsule PO SCH (07:53)
[2021-12-06] MEDS: multivitamins, therapeutics tablet PO SCH (07:55)
[2021-12-06] MEDS: venlafaxine XR 75mg capsule (Q24H) PO SCH (07:56)
[2021-12-06] MEDS: pantoprazole 40mg Tablet.DR PO SCH (07:56)
[2021-12-06] MEDS: atorvastatin 20mg tablet PO SCH (07:56)
[2021-12-06] MEDS: busPIRone 5mg tablet PO SCH (07:56)
[2021-12-06] MEDS: LORazepam 0.5 MG tablet PO SCH (07:56)
[2021-12-06] MEDS: metoprolol tartrate 25mg tablet PO SCH (07:58)
[2021-12-06 11:00] VITALS: BP 138/80
[2021-12-06] MEDS ORDERED: CIPR-202 PO (11:17)
[2021-12-06] MEDS ORDERED: DIGO125T PO (11:17)
[2021-12-06 15:00] VITALS: BP 155/77
--- NOTE | 2021-12-06 17:30 | NUR ---
Contacted Luiza, brokerage branch manager to give report on pt returning to facility. Pt IV removed, tele box returned to telemetry nurse. Reviewed discharge instructions with patient. Pt left facility with [facility] to return back to [facility].
[2021-12-07] MEDS ORDERED: levoFLOXACIN 250mg tablet PO SCH (11:00)
--- NOTE | 2021-12-07 13:51 | NUR ---
T/C from [facility] regarding discharge prescriptions. States prescription for ciprofloxacin incomplete and requested to have prescription sent to [facility], . Prescription for Cipro 500mg called to requested pharmacy.
--- NOTE | 2021-12-10 16:30 | NUR ---
Case Management DC follow up: Patient DC to [facility].
== END 2021-12-06 17:33 | disposition home or self-care (01) | DRG 314 ==
LOC: ER 13:31 → ED HOLD 18:17 → EDBEDREQ 20:27 → PCU 3S 21:30
PROVIDERS: ADMIT Internal Medicine; ATTEND Internal Medicine
DX: I95.9 Hypotension, unspecified (principal); N17.0 Acute kidney failure with tubular necrosis; E87.2 Acidosis; N39.0 Urinary tract infection, site not specified; J44.9 Chronic obstructive pulmonary disease, unspecified; T46.0X5A Adverse effect of cardiac-stimulant glycosides and drugs of similar action, initial encounter; B96.20 Unspecified Escherichia coli [E. coli] as the cause of diseases classified elsewhere; Z66 Do not resuscitate; E86.0 Dehydration; E78.00 Pure hypercholesterolemia, unspecified; F32.A Depression, unspecified; F41.9 Anxiety disorder, unspecified; G20 Parkinson's disease; G89.29 Other chronic pain; I10 Essential (primary) hypertension; I48.91 Unspecified atrial fibrillation; M19.09 Primary osteoarthritis, other specified site; K21.9 Gastro-esophageal reflux disease without esophagitis; M54.9 Dorsalgia, unspecified; Z82.0 Family history of epilepsy and other diseases of the nervous system; Z88.0 Allergy status to penicillin; Z91.013 Allergy to seafood; Y92.89 Other specified places as the place of occurrence of the external cause
CPT/HCPCS: 36415; 71045; 80048; 80053; 80162; 81001; 83735; 83880; 84484; 85025; 85610; 87077; 87081; 87088; 87186; 93005; 93306; 97116; 97161; 97530; 99285; A4314; A6212; A6449; G0378; J1956; J7030

== ENCOUNTER 2022-09-17 19:17 | Emergency (ER) | payer MEDICARE ==
[~2022-09-17] VITALS: Ht 167.6 cm; Wt 80.0 kg
[~2022-09-17 19:17] MED LIST changes: +ATOR40TA72 PO; +BREX2TAB PO; -CARB1TAB36 PO; +CARB1TAB39 PO; -DIGO125T PO; +GABA-530 PO; +METO25TA6 PO; -ONDA4TAB6 PO; +OXYC-658 PO; -OXYC10TA47 PO; -VENL25TA48 PO; +VENL75TA90 PO
[2022-09-17 19:29] VITALS: BP 153/82
[2022-09-17] MEDS ORDERED: LORazepam 1 MG tablet PO ONE (21:15)
== END 2022-09-17 22:24 | disposition home or self-care (01) ==
LOC: ER 19:18
DX: F41.9 Anxiety disorder, unspecified (principal); E78.00 Pure hypercholesterolemia, unspecified; I10 Essential (primary) hypertension; J44.9 Chronic obstructive pulmonary disease, unspecified; K21.9 Gastro-esophageal reflux disease without esophagitis; G89.29 Other chronic pain; M54.9 Dorsalgia, unspecified; Z88.0 Allergy status to penicillin; Z91.013 Allergy to seafood; Z79.899 Other long term (current) drug therapy; Z79.1 Long term (current) use of non-steroidal anti-inflammatories (NSAID); Z79.2 Long term (current) use of antibiotics
CPT/HCPCS: 99284

== ENCOUNTER 2022-11-07 07:41 | Emergency (ER) | payer MEDICARE ==
[~2022-11-07] VITALS: Ht 168.9 cm; Wt 55.0 kg
[2022-11-07 07:58] VITALS: TEMP 97.6
[2022-11-07] MEDS ORDERED: CefTRIAXone/D5W-Rocephin 1gm 50 ML IV ONE (08:10)
[2022-11-07] MEDS ORDERED: TETanus/Pertussis (Acell)/Diphther VAC/PF (Tdap-Adult) 0.5ml syringe IMVAC ONE (08:10)
[2022-11-07 08:41] LABS: BASOPHILS # (AUTO) 0.1 X10'3 (0-0.2); BASOPHILS % (AUTO) 1.1 % (0-1); EOSINOPHILS # (AUTO) 1.7 X10'3 (0-0.9); EOSINOPHILS % (AUTO) 17.4 % (0-6); HEMATOCRIT 31.7 % (35.0-45.0); HEMOGLOBIN 10.2 g/dl (12.0-16.0); LYMPHOCYTES # (AUTO) 0.6 X10'3 (1.1-4.8); LYMPHOCYTES % (AUTO) 5.8 % (21-51); MEAN CORPUSCULAR HEMOGLOBIN 31.9 PG (27.0-31.0); MEAN CORPUSCULAR HGB CONC 32.2 g/dL (33.0-36.5); MEAN CORPUSCULAR VOLUME 98.9 FL (78-98); MONOCYTES # (AUTO) 0.7 X10'3 (0-0.9); MONOCYTES % (AUTO) 7.2 % (2-12); NEUTROPHILS # (AUTO) 6.8 X10'3 (1.8-7.7); NEUTROPHILS % (AUTO) 68.5 % (42-75); PLATELET COUNT 273 X10'3 (140-440); RED BLOOD COUNT 3.21 X10'6 (4.20-5.60); RED CELL DISTRIBUTION WIDTH 17.3 % (11.5-14.5)
[2022-11-07 08:54] LABS: APTT 38 SECONDS (22-32)
[2022-11-07 09:07] LABS: ALANINE AMINOTRANSFERASE 73 U/L (12-78); ALBUMIN 3.2 G/DL (3.4-5.0); ALBUMIN/GLOBULIN RATIO 0.8 (1.1-1.5); ALKALINE PHOSPHATASE 517 IU/L (46-116); ANION GAP 12 (8-16); ASPARTATE AMINO TRANSFERASE 55 U/L (10-37); BILIRUBIN,TOTAL 0.3 MG/DL (0.1-1.0); BLOOD UREA NITROGEN 47 MG/DL (7-18); BUN/CREATININE RATIO 20.4 (10.0-20.0); CALCIUM 9.2 MG/DL (8.5-10.1); CHLORIDE 108 MMOL/L (99-107); GLUCOSE 116 MG/DL (70-104); SODIUM 138 MMOL/L (135-145); TOTAL CARBON DIOXIDE 18.4 MMOL/L (24-32); TOTAL PROTEIN 7.4 G/DL (6.4-8.2); eGFR 20 ML/MIN
[2022-11-07 09:56] LABS: CLARITY,URINE CLOUDY (Clear); COLOR,URINE YELLOW (Yellow); GLUCOSE, URINE NEGATIVE (Neg); KETONES,URINE NEGATIVE (Neg); LEUKOCYTE ESTERASE ,URINE MODERATE (Neg); NITRITES, URINE NEGATIVE (Neg); OCCULT BLOOD,URINE TRACE-INTACT (Neg); PH,URINE 5.5 (4.8-8.0); PROTEIN,URINE TRACE mg/dl (Neg); UROBILINOGEN,URINE 0.2 E.U/dL (0.2-1.0)
[2022-11-07 10:04] LABS: UA COLLECTION TYPE STRAIGHT CATH
[2022-11-07 10:06] LABS: SQUAMOUS EPITHELIAL CELL,UR FEW /LPF (FEW)
[2022-11-07 10:07] LABS: BACTERIA,URINE 2+ /HPF (Neg); WBC CLUMPS,URINE FEW /HPF (NEGATIVE)
[2022-11-07 10:08] LABS: WBC,URINE TNTC /HPF (0-4)
[2022-11-07 10:10] LABS: RBC,URINE 0-2 /HPF (0-2)
[2022-11-07] MEDS ORDERED: morphine 2 MG/ML inj. syringe IV ONE ×2 (10:55→11:15)
[2022-11-07] MEDS ORDERED: ondansetron/PF 4mg/2ml inj IV ONE (10:55)
[2022-11-07] MEDS ORDERED: LIDOcaine 1% W/epiNEPHrine 1:100,000 20ml vial SQ ONE (10:55)
--- NOTE | 2022-11-07 12:05 | NUR ---
called and nurse to nurse report given. Pt to return to facility via [facility].
[2022-11-07] MEDS ORDERED: oxyCODONE/APAP 5-325mg tablet PO ONE (12:35)
[2022-11-07 13:41] VITALS: BP 129/82; PULSE 120; RESP 15; O2SAT 96
== END 2022-11-07 14:32 | disposition home or self-care (01) ==
LOC: ER 07:41
DX: R51.9 Headache, unspecified (principal)
CPT/HCPCS: 12014; 36415; 70450; 71045; 72125; 73502; 80053; 81001; 82948; 84484; 85025; 85610; 85730; 87077; 87088; 87186; 90471; 90715; 93005; 96365; 96375; 96376; 99285; J0696; J2270; J2405; J7030; 12013; A6446; A6449; C1758